=== PATIENT | male | born 1965 | race Caucasian/White ===

== ENCOUNTER 2017-02-13 15:29 | Emergency (ER) | payer BC ==
--- NOTE | 2017-02-13 15:58 | PDOC ---
Foot / Ankle Injury - General Chief Complaint: Lower Extremity Problem/Injury Stated Complaint: STUBBED TOE BROKE TOENAIL Date Seen by Provider: 02/13/17 Time Seen by Provider: 15:40 Source: POSITIVE: Patient Exam Limitations: POSITIVE: No limitations Nurse's Notes Reviewed & Considered: Yes - History of Present Illness Initial Comments: The patient is a 51-year-old male who presents to the emergency department with an injury to his left great toe. He states that earlier this morning he stubbed his left great toe with his shoes off. He states that the toenail split. He did go to work and now presents to the emergency room for evaluation. He is diabetic which is his primary concern. He is able to bear weight and denies any other associated injuries or complaints. Have you received a tetanus shot in the past 10 years?: Unknown - Patient Home Medications Home Medications: Home Medications Cephalexin [Keflex] 500 mg PO Q8H #15 cap 02/13/17 Past Medical History Past Medical History Reviewed: Other (please comment) (Written nursing documentation reviewed) ROS - Limitations ROS Limitations: No Limitations (Review of systems otherwise noncontributory) Constitution: DENIES: Chills, Fever Foot / Ankle Exam - General Appearance General Appearance: POSITIVE: Alert, Cooperative, No Acute Distress - Extremities Foot: POSITIVE: Other (examination left foot does reveal a partial nail avulsion which is incomplete to the left great toenail, there is no visible swelling to the toe and no bony tenderness) Gait: POSITIVE: Normal Vascular: POSITIVE: No Vascular Compromise Foot / Ankle Progress - Patient's Progress MDM / ED Course: Elected to leave the toenail in place at this time. Recommend keeping the toe covered with a bandage so that the toenail does not catch and tear. He was started on Keflex 500 mg 3 times a day for 5 days for infection prophylaxis. Patient will return to the emergency room if he develops increased swelling, fever, drainage, any worsening or change in symptoms. He'll follow-up with primary care as needed. - Consult Counseled: POSITIVE: Patient, RE: DX, RE: Need for F/U Patient Care Time - Estimated PCT Patient Care Time (In Minutes): 10 Vital Signs - VS Reviewed Vital Signs Reviewed: Yes Discharge Clinical Impression: Toenail avulsion Discharge Disposition: Discharged to Home Condition: Stable Prescriptions / Orders: Cephalexin [Keflex] 500 mg PO Q8H #15 cap Patient Instructions Given at Discharge: Nail Avulsion (ED) Additional Instructions: The toenail is partially avulsed on the great toe. Recommend that she keep the toe covered to prevent the nail from catching and tearing further. This should grow out on its own. You should trim the nail as you can. You have been started on Keflex 500 mg 3 times a day for infection prevention secondary to your diabetes. Return to the emergency room if he developed increased pain, drainage from the wound, fever or other sign of infection. Follow-up with primary care as needed. Follow Up With: DORON QUIROGA [Primary Care Provider] -
[2017-02-13 16:50] VITALS: RESP 16; TEMP 96.5
== END 2017-02-13 15:53 | disposition home or self-care (01) ==
LOC: ER 15:29
DX: S91.202A Unspecified open wound of left great toe with damage to nail, initial encounter (principal); I10 Essential (primary) hypertension; E11.40 Type 2 diabetes mellitus with diabetic neuropathy, unspecified; W22.8XXA Striking against or struck by other objects, initial encounter
CPT/HCPCS: 99282